=== PATIENT | male | born 1935 | race Caucasian/White ===

== ENCOUNTER 2017-05-01 13:51 | Inpatient (IN) | payer OTHER, BC ==
[~2017-05-01] VITALS: Ht 165.1 cm; Wt 94.4 kg
[~2017-05-01 13:51] MED LIST: APRISO0.375 GM PO; BAYER CHEWABLE81 MG PO; CALAN120 MG PO; CALCIUM 600 +1 EA12 PO; CARDURA2 M1 PO; CELEXA10 MG PO; CHILDREN'S ASPI81 M1 PO; COGENTIN0.5 MG PO; COMBIVENT RESPIM4 GM IH; DIABETA5 MG PO; FLAGYL500 MG PO; GABAPENTIN800 MG PO; GARLIC OIL1000 MG PO; GLUCOPHAGE500 MG PO; GLUCOTROL XL5 MG PO; HYDROCHLOROTHIA25 MG PO; NAPROXEN500 MG PO; NEURONTIN300 MG PO; NEURONTIN800 MG PO; NORCO 5/3251 TABLET PO; NORCO 7.5/321 TABLET PO; NORTRIPTYLINE H10 MG PO; NORVASC10 MG PO; PROVENTIL,2.5 MG/3 M IH; RISPERDAL0.5 MG PO; TAMIFLU30 MG PO; Vancocin Oral Solution PO; ZESTRIL40 MG PO
[2017-05-01 14:37] LABS: HEMATOCRIT 39.5 % (38.0-50.0); MCH 24.5 PG (29.0-34.0); MCHC 28.9 G/DL (30.0-36.0); MCV 84.9 FL (86-99); PLATELET COUNT 366 K/uL (156-360); RBC DIS.WIDTH-CV 18.6 % (11.8-14.6); RBC DIS.WIDTH-SD 57.2 % (39-53); RED BLOOD COUNT 4.65 M/uL (4.00-5.50); WHITE BLOOD COUNT 8.1 K/uL (4.1-10.2)
[2017-05-01 14:42] LABS: BASE EXCESS -1.9 mEq/L (-3 to +3); BICARBONATE 25.4 mEq/L (22-26); CARBOXY HGB 2.1 % (0-5); METHEMOGLOBIN 0.8 % (0-1.5); PCO2 54 mm Hg (35-45); PO2 56 mm Hg (80-100)
[2017-05-01 14:43] LABS: COMMENTS - BLOOD GASES A+C+; DEVICE NC; O2 FLOW 3 L/MIN; SITE RR; pH 7.28 (7.35-7.45)
[2017-05-01 14:46] LABS: CHLORIDE 107 mEq/L (99-109); SODIUM 138 mEq/L (136-147)
[2017-05-01 14:48] LABS: GLUCOSE 147 mg/dL (70-99)
[2017-05-01 14:49] LABS: ANION GAP 7 MEQ/L (2-14)
[2017-05-01 14:50] LABS: TOTAL BILIRUBIN 0.3 mg/dL (0.0-1.0)
[2017-05-01 14:51] LABS: ALKALINE PHOSPHATASE 114 IU/L (3-129)
[2017-05-01 14:52] LABS: GFR ESTIMATE (CALCULATED) 34 mL/min/
[2017-05-01 14:53] LABS: UREA NITROGEN (BUN) 30 mg/dL (9-23)
[2017-05-01 14:55] LABS: POTASSIUM 8.3 mEq/L (3.7-5.4)
[2017-05-01 14:58] LABS: TROP-I INTERPRETATION NEGATIVE; TROPONIN-I 0.02 ng/mL (0.0-0.30)
[2017-05-01 15:25] LABS: ABS NEUTROPHIL COUNT 5.9; ANISOCYTOSIS 1+; ATYPICAL LYMPHOCYTE 3.7 %; BAND NEUTROPHILS 25.7 % (0-8.0); EOSINOPHIL ABS CT 0.3; EOSINOPHILS 3.6 % (0-5.0); GIANT PLATELETS 1+; HYPOCHROMASIA 1+; INSTRUMENT ABS NEUTROPHIL CT 5.4 K/uL; LYMPHOCYTES 15.6 % (15.0-45.0); MICROCYTOSIS 1+; OVALOCYTES 1+; PLAT.SUFFICIENCY ADEQUATE; POIKILOCYTOSIS 1+; SEG.NEUTROPHILS 46.8 % (46.0-76.0); SPHEROCYTES 1+; STOMATOCYTES 1+
[2017-05-01 16:14] LABS: ADD MIUA? NO; BILIRUBIN NEGATIVE; BLOOD NEGATIVE; COLOR YELLOW ((YELLOW)); GLUCOSE (STRIP) NEGATIVE; KETONES NEGATIVE; LEUKOCYTES NEGATIVE; NITRITE NEGATIVE; PROTEIN (STRIP) NEGATIVE; SPECIFIC GRAVITY 1.025 (1.000-1.030); UCUL ADDED? NO; UROBILINOGEN 0.2 MG/DL (0.2-1.0)
[2017-05-01 16:16] LABS: BASE EXCESS -1.6 mEq/L (-3 to +3); BICARBONATE 24.7 mEq/L (22-26); CARBOXY HGB 2.2 % (0-5); METHEMOGLOBIN 0.7 % (0-1.5); pH 7.32 (7.35-7.45)
[2017-05-01 16:17] LABS: COMMENTS - BLOOD GASES A+C+; DEVICE 980 PB MASK; FI02 30 %; MECHANICAL RATE 8 resp/min; MODE SIMV NIV; PCO2 48 mm Hg (35-45); PO2 83 mm Hg (80-100); SITE LR; TIDAL VOLUME 500 ML; TOTAL RESP RATE 18 resp/min
[2017-05-01 16:18] LABS: PEEP 5 CM/H20; PRES. SUPPORT 15 CM/H2O
[2017-05-01] MEDS ORDERED: PROBIOTIC1 EAC1 PO (17:11)
[2017-05-01] MEDS ORDERED: KEFLEX500 MG PO (17:12)
[2017-05-01 18:30] VITALS: BP 137/89
[2017-05-01 19:00] VITALS: BP 162/138
[2017-05-01 19:47] LABS: METH RESISTANT S AUREUS PCR NEGATIVE (NEGATIVE)
[2017-05-01 19:50] LABS: PROBE CHECK PASS; SPECIMEN PROCESSING CONTROL PASS
[2017-05-01 20:00] VITALS: BP 118/69
[2017-05-01 21:00] VITALS: BP 114/61
[2017-05-01 22:00] VITALS: BP 124/57
[2017-05-01 22:21] LABS: POINT-OF-CARE METER ID UU13113803
[2017-05-01 23:00] VITALS: BP 103/72
[2017-05-02] VITALS (19 sets, daily range): BP systolic 76–188; BP diastolic 57–93
[2017-05-02 04:15] LABS: HEMATOCRIT 33.9 % (38.0-50.0); MCH 24.1 PG (29.0-34.0); MCHC 29.2 G/DL (30.0-36.0); MCV 82.7 FL (86-99); MEAN PLAT.VOLUME 8.8 uM^3 (9.0-12.4); PLATELET COUNT 266 K/uL (156-360); RBC DIS.WIDTH-CV 18.6 % (11.8-14.6); RBC DIS.WIDTH-SD 55.6 % (39-53); WHITE BLOOD COUNT 5.4 K/uL (4.1-10.2)
[2017-05-02 04:25] LABS: CHLORIDE 111 mEq/L (99-109); POTASSIUM 5.6 mEq/L (3.7-5.4); SODIUM 139 mEq/L (136-147)
[2017-05-02 04:27] LABS: GLUCOSE 114 mg/dL (70-99)
[2017-05-02 04:28] LABS: ANION GAP 8 MEQ/L (2-14)
[2017-05-02 04:31] LABS: GFR ESTIMATE (CALCULATED) 47 mL/min/
[2017-05-02 04:32] LABS: UREA NITROGEN (BUN) 23 mg/dL (9-23)
[2017-05-02 06:03] LABS: EOSINOPHIL (%) 3.3 % (0-5); EOSINOPHIL COUNT 0.2 K/uL (0-0.3); IMMATURE GRANULOCYTE (%) 0.4 % (0.0-0.7); INSTRUMENT ABS NEUTROPHIL CT 3.3 K/uL; LYMPHOCYTE COUNT 0.9 K/uL (1.0-2.8); MONOCYTE (%) 18.7 % (3-12); NEUTROPHIL (%) 60.2 % (45-76); NEUTROPHIL COUNT 3.3 K/uL (1.8-6.4)
[2017-05-02 09:41] LABS: POINT-OF-CARE METER ID UU14162636
[2017-05-02 12:22] LABS: POINT-OF-CARE METER ID UU13113731
[2017-05-02 18:10] LABS: POINT-OF-CARE METER ID UU14314083
[2017-05-02 22:18] LABS: POINT-OF-CARE METER ID UU14162636
[2017-05-03] VITALS (9 sets, daily range): BP systolic 91–150; BP diastolic 64–107
[2017-05-03 02:08] LABS: C DIFF TOXIN NEGATIVE (NEGATIVE)
[2017-05-03 02:12] LABS: PROBE CHECK PASS; SPECIMEN PROCESSING CONTROL PASS
[2017-05-03 05:49] LABS: HEMATOCRIT 37.3 % (38.0-50.0); MCH 24.6 PG (29.0-34.0); MCHC 29.5 G/DL (30.0-36.0); MCV 83.4 FL (86-99); MEAN PLAT.VOLUME 8.9 uM^3 (9.0-12.4); PLATELET COUNT 295 K/uL (156-360); RBC DIS.WIDTH-CV 18.4 % (11.8-14.6); RBC DIS.WIDTH-SD 55.1 % (39-53); RED BLOOD COUNT 4.47 M/uL (4.00-5.50); WHITE BLOOD COUNT 6.5 K/uL (4.1-10.2)
[2017-05-03 06:37] LABS: ABS NEUTROPHIL COUNT 4.8; ANISOCYTOSIS 1+; BAND NEUTROPHILS 22.6 % (0-8.0); BASOPHILS 1.8 %; EOSINOPHIL ABS CT 0; GIANT PLATELETS 1+; INSTRUMENT ABS NEUTROPHIL CT 4.8 K/uL; LYMPHOCYTES 5.2 % (15.0-45.0); OVALOCYTES 1+; PLAT.SUFFICIENCY ADEQUATE; POIKILOCYTOSIS 1+; SEG.NEUTROPHILS 51.3 % (46.0-76.0)
[2017-05-03 06:55] LABS: ANION GAP 7 MEQ/L (2-14); CHLORIDE 106 MEQ/L (99-109); GFR ESTIMATE (CALCULATED) 41 mL/min/; GLUCOSE 156 mg/dL (70-99); IRON 19 MCG/DL (35-150); POTASSIUM 5.5 MEQ/L (3.7-5.4); SODIUM 141 MEQ/L (136-147); UREA NITROGEN (BUN) 17 mg/dL (9-23)
[2017-05-03 10:58] LABS: POINT-OF-CARE METER ID UU14162636
[2017-05-03 12:25] LABS: POINT-OF-CARE METER ID UU14162636
[2017-05-03 17:31] LABS: POINT-OF-CARE METER ID UU14162636
[2017-05-03 20:43] LABS: POINT-OF-CARE METER ID UU13113781
[2017-05-04 04:32] VITALS: BP 158/87
[2017-05-04 05:09] LABS: CHLORIDE 106 mEq/L (99-109); POTASSIUM 5.2 mEq/L (3.7-5.4); SODIUM 140 mEq/L (136-147)
[2017-05-04 05:12] LABS: GLUCOSE 144 mg/dL (70-99)
[2017-05-04 05:13] LABS: ANION GAP 6 MEQ/L (2-14)
[2017-05-04 05:14] LABS: TOTAL BILIRUBIN 0.3 mg/dL (0.0-1.0)
[2017-05-04 05:15] LABS: ALKALINE PHOSPHATASE 102 IU/L (3-129); GFR ESTIMATE (CALCULATED) 51 mL/min/
[2017-05-04 05:16] LABS: UREA NITROGEN (BUN) 15 mg/dL (9-23)
[2017-05-04 07:10] VITALS: BP 133/70
[2017-05-04 07:49] LABS: POINT-OF-CARE METER ID UU14174216
[2017-05-04 11:00] VITALS: BP 131/65
[2017-05-04 11:27] LABS: POINT-OF-CARE METER ID UU14174216
[2017-05-04 15:00] VITALS: BP 133/72
[2017-05-04 17:00] LABS: POINT-OF-CARE METER ID UU14174216
[2017-05-04 19:24] VITALS: BP 163/76
[2017-05-04 20:53] LABS: POINT-OF-CARE METER ID UU13113781
[2017-05-04 23:17] VITALS: BP 118/56
[2017-05-05 03:45] VITALS: BP 139/75
[2017-05-05 07:45] LABS: POINT-OF-CARE METER ID UU14174216
[2017-05-05 08:00] VITALS: BP 144/82
[2017-05-05 08:37] LABS: ALKALINE PHOSPHATASE 94 IU/L (3-129); ANION GAP 9 MEQ/L (2-14); CHLORIDE 102 MEQ/L (99-109); GFR ESTIMATE (CALCULATED) > 59 mL/min/; GLUCOSE 143 mg/dL (70-99); SAMPLE HEMOLYSIS CHECK 0; SAMPLE ICTERIC CHECK 0; SAMPLE LIPEMIA CHECK 0; SODIUM 138 MEQ/L (136-147); TOTAL BILIRUBIN 0.3 MG/DL (0.0-1.0); UREA NITROGEN (BUN) 16 mg/dL (9-23)
[2017-05-05 11:19] LABS: POINT-OF-CARE METER ID UU14174216
[2017-05-05 16:27] LABS: POINT-OF-CARE METER ID UU13113781
[2017-05-05 17:06] VITALS: BP 128/67
[2017-05-05 20:27] VITALS: BP 133/75
[2017-05-05 22:10] LABS: POINT-OF-CARE METER ID UU14117124
[2017-05-05 23:48] VITALS: BP 139/63
[2017-05-06 06:51] LABS: ANION GAP 8 MEQ/L (2-14); CHLORIDE 102 MEQ/L (99-109); GFR ESTIMATE (CALCULATED) 56 mL/min/; GLUCOSE 135 mg/dL (70-99); MAGNESIUM 1.8 mg/dl (1.3-2.7); SAMPLE HEMOLYSIS CHECK 0; SAMPLE ICTERIC CHECK 0; SAMPLE LIPEMIA CHECK 0; SODIUM 136 MEQ/L (136-147); UREA NITROGEN (BUN) 19 mg/dL (9-23)
[2017-05-06 08:30] VITALS: BP 125/74
[2017-05-06 11:21] LABS: POINT-OF-CARE METER ID UU14149397
[2017-05-06] MEDS ORDERED: AMLODIPINE BESY10 MG PO (15:08)
[2017-05-06] MEDS ORDERED: DUONEB 2.5-0.5 M3 ML AEROSOL (15:08)
[2017-05-06] MEDS ORDERED: GABAPENTIN400 MG PO ×2 (15:09)
[2017-05-06] MEDS ORDERED: GABAPENTIN600 MG PO (15:09)
[2017-05-06] MEDS ORDERED: NOVOLOG PE100 UNITS/ SC (15:12)
[2017-05-06] MEDS ORDERED: HALDOL2 MG PO (15:13)
[2017-05-06] MEDS ORDERED: TRAZODONE HCL50 MG PO (15:13)
[2017-05-06] MEDS ORDERED: HYDROCODON-ACE1 EAC8 PO (15:17)
[2017-05-06 16:45] VITALS: BP 124/70
[2017-05-06 16:50] LABS: POINT-OF-CARE METER ID UU14188577
== END 2017-05-06 18:06 | DRG 640 ==
LOC: EME 13:51 → EDOF 16:50 → 4EAST 16:50 → 4WEST 16:50 → ENRESERV 16:52 → 4WEST 18:19 → ENRESERV 05-03 16:12 → 4EAST 05-03 18:22 → ENRESERV 05-05 08:23 → 3EAST 05-05 16:56
PROVIDERS: Emergency Medicine; Internal Medicine; Internal Medicine Critical Care Medicine; Surgery
PROC: 5A09358 Assistance with Respiratory Ventilation, Less than 24 Consecutive Hours, Intermittent Positive Airway Pressure (ICD-10-PCS; principal; 2017-05-01)
DX: E87.5 Hyperkalemia (principal); J96.01 Acute respiratory failure with hypoxia; R65.11 Systemic inflammatory response syndrome (SIRS) of non-infectious origin with acute organ dysfunction; N17.9 Acute kidney failure, unspecified; E87.2 Acidosis; E11.42 Type 2 diabetes mellitus with diabetic polyneuropathy; G47.00 Insomnia, unspecified; I10 Essential (primary) hypertension; G30.9 Alzheimer's disease, unspecified; F02.80 Dementia in other diseases classified elsewhere, unspecified severity, without behavioral disturbance, psychotic disturbance, mood disturbance, and anxiety; J44.9 Chronic obstructive pulmonary disease, unspecified; D50.9 Iron deficiency anemia, unspecified; G89.29 Other chronic pain; E66.9 Obesity, unspecified; Z68.34 Body mass index [BMI] 34.0-34.9, adult; Z85.46 Personal history of malignant neoplasm of prostate; Z86.73 Personal history of transient ischemic attack (TIA), and cerebral infarction without residual deficits; Z87.891 Personal history of nicotine dependence; Z23 Encounter for immunization; Z91.81 History of falling
CPT/HCPCS: 36600; 70450; 71010; 72125; 76770; 80048; 80053; 81003; 82803; 82948; 83540; 83605; 83735; 83880; 84132; 84132 91; 84466; 84484; 85025; 87040; 87070; 87205; 87493; 87641; 90686; 93005; 94002; 94640; 94640 76; 94660; 94760; 97530 GO; 99202; 99281; 99285; J0360; J1630; J1650; J1815; J2543; J7030; J7050

== ENCOUNTER 2017-05-14 16:43 | Inpatient (IN) | payer OTHER, BC ==
[~2017-05-14] VITALS: Ht 165.1 cm; Wt 94.4 kg
[~2017-05-14 16:43] MED LIST changes: +AMLODIPINE BESY10 MG PO; +DUONEB 2.5-0.5 M3 ML AEROSOL; +GABAPENTIN400 MG PO; +GABAPENTIN600 MG PO; +HALDOL2 MG PO; +HYDROCODON-ACE1 EAC8 PO; +KEFLEX500 MG PO; +NOVOLOG PE100 UNITS/ SC; +PROBIOTIC1 EAC1 PO; +TRAZODONE HCL50 MG PO
[2017-05-14 17:56] LABS: HEMATOCRIT 32.3 % (38.0-50.0); MCH 24.8 PG (29.0-34.0); MCHC 29.7 G/DL (30.0-36.0); MCV 83.5 FL (86-99); MEAN PLAT.VOLUME 8.7 uM^3 (9.0-12.4); PLATELET COUNT 278 K/uL (156-360); RBC DIS.WIDTH-SD 57.3 % (39-53); RED BLOOD COUNT 3.87 M/uL (4.00-5.50); WHITE BLOOD COUNT 25.1 K/uL (4.1-10.2)
[2017-05-14 18:04] LABS: CHLORIDE 111 mEq/L (99-109); POTASSIUM 4.3 mEq/L (3.7-5.4); SODIUM 137 mEq/L (136-147)
[2017-05-14 18:06] LABS: GLUCOSE 112 mg/dL (70-99)
[2017-05-14 18:08] LABS: ANION GAP 5 MEQ/L (2-14); TOTAL BILIRUBIN 0.4 mg/dL (0.0-1.0)
[2017-05-14 18:10] LABS: ALKALINE PHOSPHATASE 95 IU/L (3-129); GFR ESTIMATE (CALCULATED) 38 mL/min/
[2017-05-14 18:11] LABS: UREA NITROGEN (BUN) 18 mg/dL (9-23)
[2017-05-14 18:12] LABS: ADD MIUA? YES; BILIRUBIN NEGATIVE; BLOOD MODERATE; COLOR AMBER ((YELLOW)); GLUCOSE (STRIP) NEGATIVE; KETONES 5; LEUKOCYTES MODERATE; NITRITE POSITIVE; PROTEIN (STRIP) 100; SPECIFIC GRAVITY 1.026 (1.000-1.030); UROBILINOGEN 0.2 MG/DL (0.2-1.0)
[2017-05-14 18:27] LABS: COMMENTS - BLOOD GASES C+; DEVICE VENTI MASK; FI02 40 %; HEMOGLOBIN 9.9 (12.5-16.6); O2 FLOW 8 L/MIN; PCO2 51 mm Hg (35-45); PO2 80 mm Hg (80-100); SITE RR; TOTAL RESP RATE 34 resp/min; pH 7.29 (7.35-7.45)
[2017-05-14 18:28] LABS: BASE EXCESS -2.3 mEq/L (-3 to +3); BICARBONATE 24.5 mEq/L (22-26); METHEMOGLOBIN 1.1 % (0-1.5); O2 SATURATION (CALCULATED) 97.5 % (95-99)
[2017-05-14 18:33] LABS: TROP-I INTERPRETATION NEGATIVE; TROPONIN-I < 0.01 ng/mL (0.0-0.30)
[2017-05-14 18:39] LABS: EPITHELIAL CELLS 1+ /HPF; MUCUS 1+ /LPF; WHITE BLOOD CELLS 20-30 /HPF (0-5)
[2017-05-14 18:40] LABS: AMORPHOUS URATES CRYSTALS 2+; BACTERIA 2+ /HPF; CASTS PRESENT /LPF; CRYSTALS PRESENT; UCUL ADDED? YES
[2017-05-14 21:01] LABS: COMMENTS - BLOOD GASES C+; DEVICE MASK VENT; FI02 30 %; MODE SPONT; PEEP 5 CM/H20; PRES. SUPPORT 10 CM/H2O; SITE RR; TOTAL RESP RATE 15 resp/min
[2017-05-14 21:02] LABS: BASE EXCESS -3.7 mEq/L (-3 to +3); BICARBONATE 22.6 mEq/L (22-26); CARBOXY HGB 1.9 % (0-5); HEMOGLOBIN 8.6 (12.5-16.6); METHEMOGLOBIN 0.9 % (0-1.5); O2 SATURATION (CALCULATED) 98.4 % (95-99); PCO2 46 mm Hg (35-45); PO2 85 mm Hg (80-100)
[2017-05-14 23:10] VITALS: BP 181/107
[2017-05-14 23:15] VITALS: BP 181/110
[2017-05-14 23:48] LABS: BASE EXCESS -9.5 mEq/L (-3 to +3); CARBOXY HGB 1.6 % (0-5); COMMENTS - BLOOD GASES C+A+; METHEMOGLOBIN 1.5 % (0-1.5); PCO2 45 mm Hg (35-45); PO2 75 mm Hg (80-100); SITE LR
[2017-05-14 23:49] LABS: DEVICE NIV; FI02 35 %; MODE SPONT; PEEP 5 CM/H20; PRES. SUPPORT 10 CM/H2O; TOTAL RESP RATE 34 resp/min; pH 7.21 (7.35-7.45)
[2017-05-15] VITALS (16 sets, daily range): BP systolic 87–141; BP diastolic 39–69
[2017-05-15 00:51] LABS: METH RESISTANT S AUREUS PCR NEGATIVE (NEGATIVE)
[2017-05-15 00:54] LABS: PROBE CHECK PASS; SPECIMEN PROCESSING CONTROL PASS
[2017-05-15 08:20] LABS: POINT-OF-CARE METER ID UU13113803
[2017-05-15 13:18] LABS: POINT-OF-CARE METER ID UU13113803
[2017-05-15] MEDS ORDERED: AMLODIPINE BESY10 MG PO (14:10)
[2017-05-15] MEDS ORDERED: NEURONTIN600 MG PO (14:10)
[2017-05-15] MEDS ORDERED: NEURONTIN400 MG PO (14:11)
[2017-05-15] MEDS ORDERED: TRAZODONE HCL50 MG PO (14:13)
[2017-05-15] MEDS ORDERED: HALOPERIDOL2 MG PO (14:13)
[2017-05-15] MEDS ORDERED: GLIPIZIDE XL10 MG PO (14:14)
[2017-05-15 16:19] LABS: BICARBONATE 28.5 mEq/L (22-26); CARBOXY HGB 1.4 % (0-5); COMMENTS - BLOOD GASES A+C+; CONTINUOUS POS AIRWAY PRESSURE 5 cm H2O; DEVICE NIV; FI02 30 %; METHEMOGLOBIN 1.6 % (0-1.5); MODE SPONT; PCO2 47 mm Hg (35-45); PO2 79 mm Hg (80-100); PRES. SUPPORT 10 CM/H2O; SITE RR; TOTAL RESP RATE 24 resp/min; pH 7.39 (7.35-7.45)
[2017-05-15 16:52] LABS: POINT-OF-CARE METER ID UU13113803
[2017-05-15 17:40] LABS: C DIFF TOXIN ND (NEGATIVE)
[2017-05-15 22:55] LABS: POINT-OF-CARE METER ID UU13113803
[2017-05-16] VITALS (12 sets, daily range): BP systolic 112–164; BP diastolic 63–97
[2017-05-16 05:27] LABS: HEMATOCRIT 32.6 % (38.0-50.0); MCHC 30.4 G/DL (30.0-36.0); MCV 82.3 FL (86-99); MEAN PLAT.VOLUME 9.7 uM^3 (9.0-12.4); PLATELET COUNT 232 K/uL (156-360); RBC DIS.WIDTH-CV 18.8 % (11.8-14.6); RBC DIS.WIDTH-SD 56.4 % (39-53); RED BLOOD COUNT 3.96 M/uL (4.00-5.50)
[2017-05-16 05:54] LABS: ANION GAP 8 MEQ/L (2-14); CHLORIDE 104 MEQ/L (99-109); MAGNESIUM 1.9 mg/dl (1.3-2.7); POTASSIUM 4.1 MEQ/L (3.7-5.4); SAMPLE HEMOLYSIS CHECK 0; SAMPLE ICTERIC CHECK 0; SAMPLE LIPEMIA CHECK 0; SODIUM 141 MEQ/L (136-147); UREA NITROGEN (BUN) 26 mg/dL (9-23)
[2017-05-16 05:55] LABS: GFR ESTIMATE (CALCULATED) > 59 mL/min/; GLUCOSE 179 mg/dL (70-99)
[2017-05-16 06:32] LABS: ABS NEUTROPHIL COUNT 20.5; ANISOCYTOSIS 1+; BURR CELLS 2+; EOSINOPHIL ABS CT 0; HYPOCHROMASIA 2+; INSTRUMENT ABS NEUTROPHIL CT 19.3 K/uL; MACROCYTES 2+; PLAT.SUFFICIENCY ADEQUATE; POIKILOCYTOSIS 1+; POLYCHROMASIA 1+; TARGET CELLS 1+; TEAR DROP CELLS 1+
[2017-05-16 06:33] LABS: BAND NEUTROPHILS 0.5 % (0-8.0); SEG.NEUTROPHILS 96.9 % (46.0-76.0)
[2017-05-16 12:24] LABS: POINT-OF-CARE METER ID UU14208751
[2017-05-16 18:01] LABS: POINT-OF-CARE METER ID UU13113675
[2017-05-16 19:16] LABS: C DIFF TOXIN POSITIVE (NEGATIVE)
[2017-05-16 19:21] LABS: PROBE CHECK PASS
[2017-05-16 23:02] LABS: POINT-OF-CARE METER ID UU13113748
[2017-05-17] VITALS (15 sets, daily range): BP systolic 104–171; BP diastolic 63–90
[2017-05-17 05:36] LABS: EOSINOPHIL (%) 0 % (0-5); HEMATOCRIT 33.5 % (38.0-50.0); IMMATURE GRANULOCYTE (%) 0.5 % (0.0-0.7); INSTRUMENT ABS NEUTROPHIL CT 7.8 K/uL; LYMPHOCYTE COUNT 0.3 K/uL (1.0-2.8); MCH 24.4 PG (29.0-34.0); MCHC 30.4 G/DL (30.0-36.0); MCV 80.1 FL (86-99); MEAN PLAT.VOLUME 9.8 uM^3 (9.0-12.4); MONOCYTE (%) 4.7 % (3-12); MONOCYTE COUNT 0.4 K/uL (0-0.8); NEUTROPHIL (%) 91.6 % (45-76); NEUTROPHIL COUNT 7.8 K/uL (1.8-6.4); NRBC (%) 0.5 /100 WBC (0-0); PLATELET COUNT 232 K/uL (156-360); RBC DIS.WIDTH-CV 18.6 % (11.8-14.6); RBC DIS.WIDTH-SD 53.6 % (39-53); RED BLOOD COUNT 4.18 M/uL (4.00-5.50); WHITE BLOOD COUNT 8.5 K/uL (4.1-10.2)
[2017-05-17 05:54] LABS: POINT-OF-CARE METER ID UU14314082; POINT-OF-CARE USER ID ENVSME70
[2017-05-17 06:04] LABS: ALKALINE PHOSPHATASE 73 IU/L (3-129); ANION GAP 10 MEQ/L (2-14); CHLORIDE 106 MEQ/L (99-109); DIRECT BILIRUBIN 0.1 mg/dL (0.0-0.3); GFR ESTIMATE (CALCULATED) > 59 mL/min/; GLUCOSE 174 mg/dL (70-99); POTASSIUM 4.6 MEQ/L (3.7-5.4); SAMPLE HEMOLYSIS CHECK 0; SAMPLE ICTERIC CHECK 0; SAMPLE LIPEMIA CHECK 0; SODIUM 143 MEQ/L (136-147); TOTAL BILIRUBIN 0.4 MG/DL (0.0-1.0); UREA NITROGEN (BUN) 25 mg/dL (9-23)
[2017-05-17 09:08] LABS: POINT-OF-CARE METER ID UU14174217
[2017-05-17 12:10] LABS: POINT-OF-CARE METER ID UU14174217
[2017-05-17 17:02] LABS: POINT-OF-CARE METER ID UU13113748
[2017-05-17 21:47] LABS: POINT-OF-CARE METER ID UU14208753
[2017-05-18 03:49] VITALS: BP 137/80
[2017-05-18 06:26] LABS: EOSINOPHIL (%) 0.1 % (0-5); IMMATURE GRANULOCYTE (%) 0.5 % (0.0-0.7); IMMATURE GRANULOCYTE COUNT 0.1 K/uL; INSTRUMENT ABS NEUTROPHIL CT 9.2 K/uL; LYMPHOCYTE COUNT 0.4 K/uL (1.0-2.8); MCH 24.2 PG (29.0-34.0); MCV 80.7 FL (86-99); MONOCYTE (%) 5.9 % (3-12); MONOCYTE COUNT 0.6 K/uL (0-0.8); NEUTROPHIL (%) 89.2 % (45-76); NEUTROPHIL COUNT 9.2 K/uL (1.8-6.4); RBC DIS.WIDTH-CV 18.7 % (11.8-14.6); RBC DIS.WIDTH-SD 54.5 % (39-53); RED BLOOD COUNT 4.46 M/uL (4.00-5.50); WHITE BLOOD COUNT 10.3 K/uL (4.1-10.2)
[2017-05-18 06:28] LABS: POINT-OF-CARE METER ID UU14117124
[2017-05-18 06:33] LABS: ANION GAP 9 MEQ/L (2-14); CHLORIDE 106 MEQ/L (99-109); GFR ESTIMATE (CALCULATED) > 59 mL/min/; GLUCOSE 208 mg/dL (70-99); POTASSIUM 5.3 MEQ/L (3.7-5.4); SAMPLE HEMOLYSIS CHECK 2; SAMPLE ICTERIC CHECK 0; SAMPLE LIPEMIA CHECK 0; SODIUM 142 MEQ/L (136-147); UREA NITROGEN (BUN) 26 mg/dL (9-23)
[2017-05-18 07:42] LABS: MEAN PLAT.VOLUME 10.9 uM^3 (9.0-12.4); PLAT.SUFFICIENCY ADEQUATE; PLATELET COUNT 241 K/uL (156-360)
[2017-05-18 08:00] VITALS: BP 120/82
[2017-05-18 13:01] LABS: POINT-OF-CARE METER ID UU14188577
[2017-05-18 16:25] VITALS: BP 151/87
[2017-05-18 17:21] LABS: POINT-OF-CARE METER ID UU14188577
[2017-05-18 21:52] LABS: POINT-OF-CARE METER ID UU14188577
[2017-05-18 23:58] VITALS: BP 132/65
[2017-05-19 07:46] VITALS: BP 118/74
[2017-05-19 12:34] LABS: POINT-OF-CARE METER ID UU14117124
[2017-05-19 16:31] LABS: POINT-OF-CARE METER ID UU14117124
[2017-05-19 22:10] LABS: POINT-OF-CARE METER ID UU14117124
[2017-05-19 23:39] VITALS: BP 156/62
[2017-05-20 04:09] VITALS: BP 148/64
[2017-05-20 06:42] LABS: POINT-OF-CARE METER ID UU14188577
[2017-05-20 07:14] LABS: HEMATOCRIT 36.3 % (38.0-50.0); MCH 24.6 PG (29.0-34.0); MCHC 30.9 G/DL (30.0-36.0); MCV 79.8 FL (86-99); MEAN PLAT.VOLUME 9.8 uM^3 (9.0-12.4); PLATELET COUNT 275 K/uL (156-360); RBC DIS.WIDTH-CV 18.6 % (11.8-14.6); RBC DIS.WIDTH-SD 52.9 % (39-53); RED BLOOD COUNT 4.55 M/uL (4.00-5.50); WHITE BLOOD COUNT 9.7 K/uL (4.1-10.2)
[2017-05-20 07:48] LABS: ALKALINE PHOSPHATASE 72 IU/L (3-129); ANION GAP 7 MEQ/L (2-14); CHLORIDE 102 MEQ/L (99-109); GFR ESTIMATE (CALCULATED) > 59 mL/min/; GLUCOSE 238 mg/dL (70-99); POTASSIUM 4.7 MEQ/L (3.7-5.4); SAMPLE HEMOLYSIS CHECK 0; SAMPLE ICTERIC CHECK 0; SAMPLE LIPEMIA CHECK 0; SODIUM 137 MEQ/L (136-147); UREA NITROGEN (BUN) 22 mg/dL (9-23)
[2017-05-20 07:50] LABS: TOTAL BILIRUBIN 0.6 MG/DL (0.0-1.0)
[2017-05-20 08:10] VITALS: BP 118/87
[2017-05-20 11:38] VITALS: BP 128/82
[2017-05-20 11:43] LABS: POINT-OF-CARE METER ID UU14208753
[2017-05-20 15:59] VITALS: BP 146/73
[2017-05-20 17:14] LABS: POINT-OF-CARE METER ID UU14188577
[2017-05-20 19:37] VITALS: BP 104/51
[2017-05-20 21:28] LABS: POINT-OF-CARE METER ID UU14188577
[2017-05-21] VITALS (7 sets, daily range): BP systolic 110–133; BP diastolic 57–82
[2017-05-21 06:36] LABS: POINT-OF-CARE METER ID UU14208753
[2017-05-21 11:56] LABS: POINT-OF-CARE METER ID UU14117124
[2017-05-21 17:01] LABS: POINT-OF-CARE METER ID UU14208753
[2017-05-21 22:03] LABS: POINT-OF-CARE METER ID UU14208753
[2017-05-22 03:25] VITALS: BP 122/78
[2017-05-22 06:10] LABS: HEMATOCRIT 37.2 % (38.0-50.0); MCH 24.6 PG (29.0-34.0); MCHC 30.1 G/DL (30.0-36.0); MCV 81.8 FL (86-99); NRBC (%) 0.2 /100 WBC (0-0); PLATELET COUNT 228 K/uL (156-360); RBC DIS.WIDTH-CV 19.5 % (11.8-14.6); RBC DIS.WIDTH-SD 55.3 % (39-53); RED BLOOD COUNT 4.55 M/uL (4.00-5.50); WHITE BLOOD COUNT 11.6 K/uL (4.1-10.2)
[2017-05-22 06:32] LABS: ALKALINE PHOSPHATASE 63 IU/L (3-129); ANION GAP 7 MEQ/L (2-14); CHLORIDE 107 MEQ/L (99-109); GFR ESTIMATE (CALCULATED) > 59 mL/min/; GLUCOSE 134 mg/dL (70-99); POTASSIUM 4.4 MEQ/L (3.7-5.4); SAMPLE HEMOLYSIS CHECK 0; SAMPLE ICTERIC CHECK 0; SAMPLE LIPEMIA CHECK 0; SODIUM 141 MEQ/L (136-147); TOTAL BILIRUBIN 0.5 MG/DL (0.0-1.0); UREA NITROGEN (BUN) 21 mg/dL (9-23)
[2017-05-22 06:49] LABS: POINT-OF-CARE METER ID UU14117124
[2017-05-22 08:07] LABS: POINT-OF-CARE METER ID UU14208753
[2017-05-22 08:25] VITALS: BP 124/76
[2017-05-22 11:35] LABS: POINT-OF-CARE METER ID UU14117124
[2017-05-22 11:55] VITALS: BP 128/76
[2017-05-22 16:30] VITALS: BP 134/68
[2017-05-22 17:30] LABS: POINT-OF-CARE METER ID UU14188577
[2017-05-22 19:46] VITALS: BP 122/64
[2017-05-22 21:25] LABS: POINT-OF-CARE METER ID UU14188577
[2017-05-23 03:22] VITALS: BP 120/68
[2017-05-23 06:59] LABS: POINT-OF-CARE METER ID UU14149397
[2017-05-23 08:16] VITALS: BP 142/74
[2017-05-23 11:31] LABS: POINT-OF-CARE METER ID UU14208753
[2017-05-23 12:11] VITALS: BP 130/82
[2017-05-23] MEDS ORDERED: LISINOPRIL40 MG PO (13:09)
[2017-05-23] MEDS ORDERED: PREDNISONE20 MG PO (13:13)
[2017-05-23] MEDS ORDERED: GLIPIZIDE5 MG PO (13:21)
== END 2017-05-23 15:07 | disposition home health service (06) | DRG 871 ==
LOC: EME 16:43 → 4WEST 21:52 → 3EAST 21:52 → EDOF 21:52 → ENRESERV 21:55 → 4WEST 22:58 → ENRESERV 05-17 14:46 → 3EAST 05-17 17:33
PROVIDERS: Emergency Medicine; Hospitalist; Internal Medicine; Internal Medicine Critical Care Medicine; Surgery
PROC: 0D9E80Z Drainage of Large Intestine with Drainage Device, Via Natural or Artificial Opening Endoscopic (ICD-10-PCS; 2017-05-16)
PROC: 0DBK8ZX Excision of Ascending Colon, Via Natural or Artificial Opening Endoscopic, Diagnostic (ICD-10-PCS; 2017-05-16)
PROC: 5A09357 Assistance with Respiratory Ventilation, Less than 24 Consecutive Hours, Continuous Positive Airway Pressure (ICD-10-PCS; principal; 2017-05-19)
DX: A41.51 Sepsis due to Escherichia coli [E. coli] (principal); N13.6 Pyonephrosis; J44.1 Chronic obstructive pulmonary disease with (acute) exacerbation; E87.2 Acidosis; A04.71 Enterocolitis due to Clostridium difficile, recurrent; K59.39 Other megacolon; N17.9 Acute kidney failure, unspecified; J96.21 Acute and chronic respiratory failure with hypoxia; J96.22 Acute and chronic respiratory failure with hypercapnia; E83.39 Other disorders of phosphorus metabolism; E11.65 Type 2 diabetes mellitus with hyperglycemia; I10 Essential (primary) hypertension; G30.9 Alzheimer's disease, unspecified; F02.80 Dementia in other diseases classified elsewhere, unspecified severity, without behavioral disturbance, psychotic disturbance, mood disturbance, and anxiety; M10.9 Gout, unspecified; F01.50 Vascular dementia, unspecified severity, without behavioral disturbance, psychotic disturbance, mood disturbance, and anxiety; G47.33 Obstructive sleep apnea (adult) (pediatric); E11.42 Type 2 diabetes mellitus with diabetic polyneuropathy; K21.9 Gastro-esophageal reflux disease without esophagitis; K51.90 Ulcerative colitis, unspecified, without complications; D50.9 Iron deficiency anemia, unspecified; E66.9 Obesity, unspecified; F32.9 Major depressive disorder, single episode, unspecified; F41.9 Anxiety disorder, unspecified; G89.29 Other chronic pain; Z99.81 Dependence on supplemental oxygen; Z87.891 Personal history of nicotine dependence; Z86.718 Personal history of other venous thrombosis and embolism; Z68.34 Body mass index [BMI] 34.0-34.9, adult; Z79.82 Long term (current) use of aspirin; Z85.46 Personal history of malignant neoplasm of prostate; Z86.73 Personal history of transient ischemic attack (TIA), and cerebral infarction without residual deficits; Z79.84 Long term (current) use of oral hypoglycemic drugs
CPT/HCPCS: 36600; 71010; 74000; 74020; 74176; 80048; 80053; 80076; 81003; 82803; 82948; 83605; 83630; 83735; 83880; 84100; 84484; 85025; 85027; 87040; 87077; 87086 GA; 87186; 87493; 87506; 87641; 87801; 88305; 93005; 94002; 94003; 94640; 94640 76; 94660; 94760; 94799; 99202; 99281; 99285; J0692; J0696; J1630; J1650; J1815; J2060; J2270; J2543; J2920; J2930; J3010; J3475; J7030; J7050; J7070; J7512; S0030

== ENCOUNTER 2017-07-26 18:45 | Inpatient (IN) | payer OTHER, BC ==
[~2017-07-26] VITALS: Ht 167.6 cm; Wt 99.6 kg
[~2017-07-26 18:45] MED LIST changes: +GLIPIZIDE XL10 MG PO; +GLIPIZIDE5 MG PO; +HALOPERIDOL2 MG PO; +LISINOPRIL40 MG PO; +PREDNISONE20 MG PO
[2017-07-26 19:45] LABS: HEMATOCRIT 36.5 % (38.0-50.0); HEMOGLOBIN 11.2 G/DL (12.5-16.6); MCH 24.9 PG (29.0-34.0); MCHC 30.7 G/DL (30.0-36.0); MCV 81.3 FL (86-99); PLATELET COUNT 237 K/uL (156-360); RBC DIS.WIDTH-CV 17.2 % (11.8-14.6); RBC DIS.WIDTH-SD 50.1 % (39-53); RED BLOOD COUNT 4.49 M/uL (4.00-5.50); WHITE BLOOD COUNT 8.6 K/uL (4.1-10.2)
[2017-07-26 20:02] LABS: ALBUMIN 3.5 g/dL (3.2-4.8)
[2017-07-26 20:03] LABS: CHLORIDE 107 mEq/L (99-109); POTASSIUM 4.4 mEq/L (3.7-5.4); SODIUM 142 mEq/L (136-147)
[2017-07-26 20:05] LABS: GLUCOSE 127 mg/dL (70-99); TOTAL PROTEIN 6.5 g/dL (6.4-8.3)
[2017-07-26 20:07] LABS: TOTAL BILIRUBIN 0.3 mg/dL (0.0-1.0)
[2017-07-26 20:08] LABS: ALKALINE PHOSPHATASE 92 IU/L (3-129)
[2017-07-26 20:09] LABS: CREATININE 1.1 mg/dL (0.6-1.3); GFR ESTIMATE (CALCULATED) > 59 mL/min/ (58.99-99999)
[2017-07-26 20:10] LABS: AST (GOT) 15 IU/L (2-34); UREA NITROGEN (BUN) 11 mg/dL (9-23)
[2017-07-26 20:11] LABS: ALT (GPT) 8 IU/L (3-49)
[2017-07-26 22:35] LABS: APPEARANCE SL.HAZY ((CLEAR)); BILIRUBIN NEGATIVE; BLOOD MODERATE; COLOR YELLOW ((YELLOW)); GLUCOSE (STRIP) NEGATIVE; KETONES NEGATIVE; LEUKOCYTES LARGE; NITRITE POSITIVE; PROTEIN (STRIP) 30; UROBILINOGEN 0.2 MG/DL (0.2-1.0)
[2017-07-26 22:45] LABS: BACTERIA RARE /HPF; EPITHELIAL CELLS RARE /HPF; MUCUS TRACE /LPF; RED BLOOD CELLS 15-20 /HPF (0-5); WHITE BLOOD CELLS TNTC /HPF (0-5)
[2017-07-27 06:17] VITALS: BP 129/70
[2017-07-27 06:48] LABS: C DIFF TOXIN POSITIVE (NEGATIVE)
[2017-07-27 06:55] VITALS: BP 132/64
[2017-07-27] MEDS ORDERED: ASPIR-LOW81 MG PO (14:42)
[2017-07-27] MEDS ORDERED: NEURONTIN400 MG PO ×2 (14:42→14:43)
[2017-07-27] MEDS ORDERED: GLIPIZIDE5 MG PO (14:43)
[2017-07-27] MEDS ORDERED: LISINOPRIL40 MG PO (14:44)
[2017-07-27] MEDS ORDERED: HYDROCODON-ACE1 EAC8 PO (14:44)
[2017-07-27 16:01] VITALS: BP 164/73
[2017-07-27 20:05] VITALS: BP 136/74
[2017-07-28 00:19] VITALS: BP 132/68
[2017-07-28 04:09] VITALS: BP 150/80
[2017-07-28 06:42] LABS: HEMOGLOBIN 10.8 G/DL (12.5-16.6); MCH 24.1 PG (29.0-34.0); MCHC 29.2 G/DL (30.0-36.0); MCV 82.6 FL (86-99); PLATELET COUNT 236 K/uL (156-360); RBC DIS.WIDTH-CV 17.2 % (11.8-14.6); RBC DIS.WIDTH-SD 51.6 % (39-53); RED BLOOD COUNT 4.48 M/uL (4.00-5.50); WHITE BLOOD COUNT 10.1 K/uL (4.1-10.2)
[2017-07-28 07:03] LABS: CHLORIDE 105 MEQ/L (99-109); GFR ESTIMATE (CALCULATED) > 59 mL/min/ (58.99-99999); GLUCOSE 183 mg/dL (70-99); SODIUM 144 MEQ/L (136-147); UREA NITROGEN (BUN) 13 mg/dL (9-23)
[2017-07-28 07:04] LABS: POTASSIUM 5.3 MEQ/L (3.7-5.4)
[2017-07-28 07:55] VITALS: BP 175/82
[2017-07-28 11:53] VITALS: BP 170/80
[2017-07-28 16:17] VITALS: BP 177/85
[2017-07-28 20:33] VITALS: BP 168/86
[2017-07-29 00:02] VITALS: BP 190/86
[2017-07-29 04:03] VITALS: BP 138/64
[2017-07-29 06:35] VITALS: BP 181/89
[2017-07-29 06:50] LABS: HEMATOCRIT 35.5 % (38.0-50.0); HEMOGLOBIN 10.6 G/DL (12.5-16.6); MCH 24.3 PG (29.0-34.0); MCHC 29.9 G/DL (30.0-36.0); MCV 81.2 FL (86-99); PLATELET COUNT 262 K/uL (156-360); RBC DIS.WIDTH-CV 16.7 % (11.8-14.6); RBC DIS.WIDTH-SD 49.4 % (39-53); RED BLOOD COUNT 4.37 M/uL (4.00-5.50); WHITE BLOOD COUNT 13.9 K/uL (4.1-10.2)
[2017-07-29 07:16] LABS: ALBUMIN 3.2 G/DL (3.2-4.8); ALKALINE PHOSPHATASE 56 IU/L (3-129); ALT (GPT) 8 IU/L (3-49); AST (GOT) 8 IU/L (2-34); CHLORIDE 105 MEQ/L (99-109); CREATININE 0.9 MG/DL (0.6-1.3); GFR ESTIMATE (CALCULATED) > 59 mL/min/ (58.99-99999); SODIUM 141 MEQ/L (136-147); TOTAL BILIRUBIN 0.2 MG/DL (0.0-1.0); UREA NITROGEN (BUN) 14 mg/dL (9-23)
[2017-07-29 07:17] LABS: GLUCOSE 106 mg/dL (70-99)
[2017-07-29 11:24] VITALS: BP 158/78
[2017-07-29 15:05] VITALS: BP 145/73
[2017-07-29] MEDS ORDERED: CEFTRIAXONE1 G1 IV (16:42)
[2017-07-29] MEDS ORDERED: PREDNISONE10 MG PO (16:44)
[2017-07-30] MEDS ORDERED: PROBIOTIC1 EAC2 PO (13:19)
[2017-07-30] MEDS ORDERED: GARLIC100 MG PO (13:19)
[2017-07-30] MEDS ORDERED: VANCOMYCIN125 MG/2.5 PO (13:21)
== END 2017-07-29 17:53 | disposition home health service (06) | DRG 694 ==
LOC: EME 18:45 → 5EAST 07-27 02:24 → EDOF 07-27 02:24 → ENRESERV 07-27 02:26 → 5EAST 07-27 04:32
PROVIDERS: Hospitalist; Internal Medicine; Physician Assistant
DX: N20.2 Calculus of kidney with calculus of ureter (principal); E11.9 Type 2 diabetes mellitus without complications; N30.20 Other chronic cystitis without hematuria; F02.80 Dementia in other diseases classified elsewhere, unspecified severity, without behavioral disturbance, psychotic disturbance, mood disturbance, and anxiety; G30.9 Alzheimer's disease, unspecified; J44.9 Chronic obstructive pulmonary disease, unspecified; A04.71 Enterocolitis due to Clostridium difficile, recurrent; I10 Essential (primary) hypertension; K51.90 Ulcerative colitis, unspecified, without complications; N28.1 Cyst of kidney, acquired; G89.29 Other chronic pain; R09.02 Hypoxemia; K21.9 Gastro-esophageal reflux disease without esophagitis; N28.82 Megaloureter; B96.20 Unspecified Escherichia coli [E. coli] as the cause of diseases classified elsewhere; Z82.5 Family history of asthma and other chronic lower respiratory diseases; Z66 Do not resuscitate; Z87.891 Personal history of nicotine dependence; Z92.3 Personal history of irradiation; Z87.442 Personal history of urinary calculi; Z99.81 Dependence on supplemental oxygen; Z82.0 Family history of epilepsy and other diseases of the nervous system; Z85.46 Personal history of malignant neoplasm of prostate; Z79.84 Long term (current) use of oral hypoglycemic drugs; Z79.899 Other long term (current) drug therapy
CPT/HCPCS: 71046; 74177; 80048; 80053; 81003; 82948; 83605; 85027; 87040; 87077; 87086; 87186; 87493; 87801; 94640; 94799; 99281; 99285; J0456; J0696; J1644; J1815; J2920; J7030; J7040; J7512

== ENCOUNTER 2017-11-30 07:53 | Inpatient (IN) | payer OTHER, BC ==
[~2017-11-30] VITALS: Ht 165.1 cm; Wt 103.5 kg
[~2017-11-30 07:53] MED LIST changes: +ASPIR-LOW81 MG PO; +CEFTRIAXONE1 G1 IV; +GARLIC1000 MG PO; +NEURONTIN400 MG PO; +PREDNISONE10 MG PO; +PROBIOTIC1 EAC2 PO; +VANCOMYCIN125 MG/2.5 PO
[2017-11-30 08:42] LABS: BASOPHIL (%) 0.2 % (0-1); EOSINOPHIL (%) 0.2 % (0-5); HEMATOCRIT 36.4 % (38.0-50.0); HEMOGLOBIN 11.2 G/DL (12.5-16.6); IMMATURE GRANULOCYTE (%) 0.4 % (0.0-0.7); LYMPHOCYTE (%) 4.7 % (15-42); LYMPHOCYTE COUNT 0.7 K/uL (1.0-2.8); MCH 24.2 PG (29.0-34.0); MCHC 30.8 G/DL (30.0-36.0); MCV 78.8 FL (86-99); MONOCYTE (%) 9.9 % (3-12); MONOCYTE COUNT 1.5 K/uL (0-0.8); NEUTROPHIL (%) 84.6 % (45-76); NEUTROPHIL COUNT 12.9 K/uL (1.8-6.4); PLATELET COUNT 214 K/uL (156-360); RBC DIS.WIDTH-CV 17.5 % (11.8-14.6); RED BLOOD COUNT 4.62 M/uL (4.00-5.50); WHITE BLOOD COUNT 15.2 K/uL (4.1-10.2)
[2017-11-30 08:48] LABS: INTER. NORMALIZED RATIO 1.3
[2017-11-30 08:54] LABS: APPEARANCE CLEAR ((CLEAR)); BILIRUBIN NEGATIVE; BLOOD SMALL; COLOR YELLOW ((YELLOW)); GLUCOSE (STRIP) NEGATIVE; KETONES 5; LEUKOCYTES SMALL; NITRITE POSITIVE; PROTEIN (STRIP) 100; SPECIFIC GRAVITY 1.018 (1.000-1.030); UROBILINOGEN 0.2 MG/DL (0.2-1.0)
[2017-11-30 08:54] LABS: CHLORIDE 103 mEq/L (99-109); POTASSIUM 4.1 mEq/L (3.7-5.4); SODIUM 138 mEq/L (136-147)
[2017-11-30 08:55] LABS: GLUCOSE 132 mg/dL (70-99)
[2017-11-30 08:59] LABS: CREATININE 1.2 mg/dL (0.6-1.3); GFR ESTIMATE (CALCULATED) > 59 mL/min/ (58.99-99999)
[2017-11-30 09:00] LABS: UREA NITROGEN (BUN) 12 mg/dL (9-23)
[2017-11-30 09:02] LABS: TROP-I INTERPRETATION NEGATIVE; TROPONIN-I 0.01 ng/mL (0.0-0.30)
[2017-11-30 09:07] LABS: BACTERIA 3+ /HPF; EPITHELIAL CELLS 1+ /HPF; MUCUS NONE SEEN /LPF; RED BLOOD CELLS 0-5 /HPF (0-5); UCUL ADDED? YES; WHITE BLOOD CELLS 20-30 /HPF (0-5)
[2017-11-30] MEDS ORDERED: NAPROXEN500 MG PO (11:13)
[2017-11-30] MEDS ORDERED: SYMBICORT (11:14)
[2017-11-30] MEDS ORDERED: SYMBICORT60 INHALA1 IH (11:15)
[2017-11-30] MEDS ORDERED: PROVENTIL,VENTOL2 MG PO (11:16)
[2017-11-30 14:36] VITALS: BP 197/91
[2017-11-30 14:50] LABS: HEMOGLOBIN A1c (GLYCOHEMOGLOB) 7.1 % (Below 5.7)
[2017-11-30 15:44] VITALS: BP 142/78
[2017-11-30 16:37] LABS: IRON 12 MCG/DL (35-150); TRANSFERRIN (TIBC) 267.4 mg/dL (215-380); TRANSFERRIN SATUR. 4 % (20-55)
[2017-11-30 17:26] LABS: FOLIC ACID (FOLATE) > 22.0 NG/ML (5.0-22.0)
[2017-11-30 17:59] LABS: FERRITIN 14 NG/ML (22-322)
[2017-11-30 18:54] LABS: C DIFF TOXIN NEGATIVE (NEGATIVE)
[2017-11-30 19:30] VITALS: BP 193/80
[2017-12-01] VITALS: BP 176/82
[2017-12-01 03:07] VITALS: BP 183/74
[2017-12-01 06:39] LABS: HEMATOCRIT 37.1 % (38.0-50.0); HEMOGLOBIN 10.8 G/DL (12.5-16.6); MCH 23.2 PG (29.0-34.0); MCHC 29.1 G/DL (30.0-36.0); MCV 79.8 FL (86-99); PLATELET COUNT 250 K/uL (156-360); RBC DIS.WIDTH-CV 17.2 % (11.8-14.6); RBC DIS.WIDTH-SD 50.1 % (39-53); RED BLOOD COUNT 4.65 M/uL (4.00-5.50); WHITE BLOOD COUNT 16.5 K/uL (4.1-10.2)
[2017-12-01 07:00] VITALS: BP 165/67
[2017-12-01 07:01] LABS: CHLORIDE 103 MEQ/L (99-109); GFR ESTIMATE (CALCULATED) > 59 mL/min/ (58.99-99999); POTASSIUM 4.2 MEQ/L (3.7-5.4); SODIUM 143 MEQ/L (136-147); UREA NITROGEN (BUN) 20 mg/dL (9-23)
[2017-12-01 07:02] LABS: GLUCOSE 208 mg/dL (70-99)
[2017-12-01 12:06] VITALS: BP 149/67
[2017-12-01 16:30] VITALS: BP 153/68
[2017-12-02 00:02] VITALS: BP 157/68
[2017-12-02 06:22] LABS: HEMATOCRIT 36.2 % (38.0-50.0); HEMOGLOBIN 10.8 G/DL (12.5-16.6); MCH 23.8 PG (29.0-34.0); MCHC 29.8 G/DL (30.0-36.0); MCV 79.7 FL (86-99); PLATELET COUNT 279 K/uL (156-360); RBC DIS.WIDTH-CV 17.4 % (11.8-14.6); RBC DIS.WIDTH-SD 50.2 % (39-53); RED BLOOD COUNT 4.54 M/uL (4.00-5.50); WHITE BLOOD COUNT 11.7 K/uL (4.1-10.2)
[2017-12-02 06:53] LABS: ALBUMIN 3.5 G/DL (3.2-4.8); ALKALINE PHOSPHATASE 91 IU/L (3-129); ALT (GPT) 14 IU/L (3-49); AST (GOT) 14 IU/L (2-34); CHLORIDE 105 MEQ/L (99-109); CREATININE 1.1 MG/DL (0.6-1.3); GFR ESTIMATE (CALCULATED) > 59 mL/min/ (58.99-99999); GLUCOSE 119 mg/dL (70-99); POTASSIUM 3.9 MEQ/L (3.7-5.4); SODIUM 142 MEQ/L (136-147); TOTAL BILIRUBIN 0.4 MG/DL (0.0-1.0); TOTAL PROTEIN 6.5 G/DL (6.4-8.3); UREA NITROGEN (BUN) 27 mg/dL (9-23)
[2017-12-02 07:29] VITALS: BP 142/74
[2017-12-02] MEDS ORDERED: CEFDINIR300 MG PO (12:40)
== END 2017-12-02 16:32 | disposition home or self-care (01) | DRG 872 ==
LOC: EME 07:53 → EDOF 11:55 → 2EAST 11:55 → ENRESERV 12:12 → 2EAST 14:20
PROVIDERS: Emergency Medicine; Internal Medicine; Physician Assistant; Student in an Organized Health Care Education/Training Program
PROC: 5A09357 Assistance with Respiratory Ventilation, Less than 24 Consecutive Hours, Continuous Positive Airway Pressure (ICD-10-PCS; principal; 2017-11-30)
DX: A41.9 Sepsis, unspecified organism (principal); N39.0 Urinary tract infection, site not specified; B96.20 Unspecified Escherichia coli [E. coli] as the cause of diseases classified elsewhere; J44.1 Chronic obstructive pulmonary disease with (acute) exacerbation; K51.90 Ulcerative colitis, unspecified, without complications; I10 Essential (primary) hypertension; I48.91 Unspecified atrial fibrillation; F32.9 Major depressive disorder, single episode, unspecified; G47.33 Obstructive sleep apnea (adult) (pediatric); E11.9 Type 2 diabetes mellitus without complications; N43.3 Hydrocele, unspecified; D50.9 Iron deficiency anemia, unspecified; Z79.82 Long term (current) use of aspirin; Z87.891 Personal history of nicotine dependence; Z85.46 Personal history of malignant neoplasm of prostate
CPT/HCPCS: 71045; 74177; 76870; 80048; 80053; 81003; 82607; 82728; 82746; 82948; 83036; 83540; 83605; 83880; 84466; 84484; 85025; 85027; 85610; 85730; 87040; 87077; 87086; 87186; 87493; 93005; 93306; 94640; 94640 76; 94660; 94799; 99202; 99281; 99285; J0696; J1644; J1815; J2930; S0030